=== PATIENT | male | born 1960 | race Caucasian/White ===

== ENCOUNTER 2022-05-09 00:01 | Emergency (ER) | payer SELFPAY ==
[~2022-05-09] VITALS: Ht 172.7 cm; Wt 74.8 kg
[2022-05-09 00:03] VITALS: BP 145/90
--- NOTE | 2022-05-09 00:05 | NUR ---
Patient taken to Chair C.
--- NOTE | 2022-05-09 00:07 | NUR ---
Dr. العلي examining patient.
--- NOTE | 2022-05-09 00:11 | NUR ---
Patient taken to X-ray.
--- NOTE | 2022-05-09 00:17 | NUR ---
Patient returned back from X-ray.
[2022-05-09] MEDS ORDERED: BENZ200C4 PO (00:26)
[2022-05-09] MEDS ORDERED: METH4TAB1 PO (00:26)
[2022-05-09 00:30] VITALS: BP 145/90
--- NOTE | 2022-05-09 00:30 | NUR ---
Patient discharged with v/s stable. Written and verbal after care instructions given and explained by Dr. العلي. Patient alert, oriented and verbalized understanding of instructions. Ambulatory with steady gait. All questions addressed prior to discharge. ID band removed. Patient advised to follow up with PMD. Rx of Medrol and Benzonatate given. Patient educated on indication of medication including possible reaction and side effects. Opportunity to ask questions provided and answered.
== END 2022-05-09 00:30 | disposition home or self-care (01) ==
LOC: MED 00:01
DX: J20.9 Acute bronchitis, unspecified (principal)
CPT/HCPCS: 71045; 99283